=== PATIENT | male | born 1995 | race Caucasian/White ===

== ENCOUNTER 2017-04-29 10:46 | Emergency (ER) | payer OTHER ==
[~2017-04-29] VITALS: Ht 170.2 cm; Wt 76.0 kg
[2017-04-29 10:49] VITALS: BP 141/96
[2017-04-29] MEDS ORDERED: ACETAMINOPHEN 325MG TABLET PO ONE (11:30)
== END 2017-04-29 12:51 | disposition home or self-care (01) ==
LOC: ER 10:54
DX: S46.912A Strain of unspecified muscle, fascia and tendon at shoulder and upper arm level, left arm, initial encounter (principal); S90.122A Contusion of left lesser toe(s) without damage to nail, initial encounter; G89.29 Other chronic pain; M79.641 Pain in right hand; Z85.79 Personal history of other malignant neoplasms of lymphoid, hematopoietic and related tissues; V43.62XA Car passenger injured in collision with other type car in traffic accident, initial encounter; Y93.89 Activity, other specified; Y92.488 Other paved roadways as the place of occurrence of the external cause
CPT/HCPCS: 73660; 99284